=== PATIENT | male | born 1980 | race Caucasian/White ===

== ENCOUNTER 2016-07-24 05:56 | Inpatient (IN) | payer SELFPAY ==
[2016-07-23 04:00] VITALS: BP 127/73; PULSE 58; RESP 20; TEMP 98.1; O2SAT 100
[~2016-07-24] VITALS: Ht 182.9 cm; Wt 77.1 kg
[2016-07-24] VITALS (8 sets, daily range): BP systolic 131–159; BP diastolic 72–102; PULSE 67–93; RESP 18–20; TEMP 98–99; O2SAT 97–98
[2016-07-24] MEDS ORDERED: SODIUM CHLOR 0.9% 1000 ML INJ 1,000 ML IV SCH (06:05)
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
[2016-07-24] MEDS ORDERED: MORPHINE SULFATE 4 MG/ML INJ IV ONE (06:15)
[2016-07-24] MEDS ORDERED: TETANUS/DIPHTHERIA TOXOID ADULT 0.5 ML VIAL IM ONE (06:15)
[2016-07-24] MEDS ORDERED: ONDANSETRON HCL 4 MG/2 ML VIAL IVP ONE (06:15)
[2016-07-24] MEDS ORDERED: SODIUM CHLORIDE 0.9% FLUSH 10 ML FLUSH IVF PRN (06:15)
[2016-07-24] MEDS ORDERED: ceFAZolin 2 GM PREMIX 50 ML IV ONE (06:15)
[2016-07-24 06:27] LABS: AUTOMATED NEUTROPHIL # 5.1 TH/MM3 (1.8-7.7); BASOPHIL % 0.5 % (0.0-2.0); EOSINOPHIL # 0.1 TH/MM3 (0-0.4); EOSINOPHIL % 1.4 % (0.0-4.0); HEMATOCRIT 43.3 % (39.0-51.0); HEMO FLAGS DIFF FINAL; LYMPH % 21.3 % (9.0-44.0); LYMPHOCYTE # 1.6 TH/MM3 (1.0-4.8); MEAN CELL VOLUME 93.7 FL (80.0-100.0); MEAN CORPUSCULAR HEMOGLOBIN 32.3 PG (27.0-34.0); MEAN CORPUSCULAR HGB CONC 34.4 % (32.0-36.0); MONO % 6.6 % (0.0-8.0); NEUT % 70.2 % (16.0-70.0); PLATELET COUNT 144 TH/MM3 (150-450); RED BLOOD COUNT 4.62 MIL/MM3 (4.50-5.90); RED CELL DISTRIBUTION WIDTH 12.2 % (11.6-17.2); WHITE BLOOD COUNT 7.3 TH/MM3 (4.0-11.0)
[2016-07-24 06:31] LABS: POTASSIUM 3.7 MEQ/L (3.5-5.1)
[2016-07-24 06:34] LABS: BICARBONATE 27.7 MEQ/L (21.0-32.0)
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
[2016-07-24 06:41] LABS: APTT (PATIENT) 23.9 SEC (24.3-30.1); PROTHROMBIN TIME - PATIENT 11.2 SEC (9.8-11.6)
[2016-07-24] MEDS ORDERED: MORPHINE SULFATE 4 MG/ML INJ IV PUSH ONE ×2 (07:00→08:00)
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
[2016-07-24] MEDS ORDERED: IOHEXOL 350 MG/ML 10 ML VIAL (for RAD DIAG) IV ONE (07:48)
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
[2016-07-24] MEDS ORDERED: oxyCODONE/ACETAMINOPHEN 5 MG/325 MG TAB PO ONE (08:00)
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
[2016-07-24 09:33] LABS: BLOOD, URINE MOD (NEG); GLUCOSE,URINE NEG (NEG); KETONE, URINE NEG (NEG); NITRITE,URINE NEG (NEG); PH, URINE 6.5 (5.0-8.5)
[2016-07-24 09:48] LABS: METHOD OF COLLECTION CLEAN CATCH
[2016-07-24 09:49] LABS: URINE COLOR YELLOW (YELLW/STRAW)
[2016-07-24 09:50] LABS: COMMENT (UR) CULT NOT INDICATED; CULTURE IF INDICATED CULT NOT INDICATED; SQUAMOUS EPITHELIAL CELL URINE 0-5 /hpf (0-5)
[2016-07-24] MEDS ORDERED: Post-op Orders (for Pharmacy) MISC XX ONE (11:30)
[2016-07-24] MEDS ORDERED: NALOXONE HCL 0.4 MG/ML AMP IV PRN (11:30)
[2016-07-24] MEDS ORDERED: ONDANSETRON HCL 4 MG/2 ML VIAL IV PRN (11:30)
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
[2016-07-24] MEDS: PANTOPRAZOLE SOD 40 MG DELAYED RELEASE TAB PO SCH (12:30)
[2016-07-24] MEDS: MORPHINE SULFATE 4 MG/ML INJ IV PRN ×4 (12:31→23:43)
[2016-07-24] MEDS: SODIUM CHLORIDE 0.9% FLUSH 10 ML FLUSH IV FLUSH PRN ×2 (12:31→17:43)
[2016-07-24] MEDS: REMOVE OLD PATCH T-DERMAL SCH (13:00)
[2016-07-24] MEDS: ACETAMINOPHEN/HYDROcodone 325 MG/5 MG TAB PO PRN ×2 (13:28→18:49)
[2016-07-24] MEDS: LIDOCAINE HCL 5% PATCH T-DERMAL SCH (13:29)
[2016-07-24] MEDS: METHOCARBAMOL 500 MG TAB PO SCH ×2 (13:30→22:33)
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
[2016-07-24] MEDS: DOCUSATE SODIUM 100 MG CAP PO SCH (20:32)
[2016-07-24] MEDS: SODIUM CHLORIDE 0.9% FLUSH 10 ML FLUSH IV FLUSH SCH (20:44)
[2016-07-24] MEDS ORDERED: DOCUSATE SODIUM 100 MG CAP PO SCH (21:00)
[2016-07-24] MEDS ORDERED: MAGNESIUM HYDROXIDE SUSP 30 ML CUP PO SCH (21:00)
[2016-07-25] VITALS: BP 134/76; PULSE 66; RESP 20; TEMP 97.8; O2SAT 100
[2016-07-25 04:00] VITALS: BP 127/73; PULSE 58; RESP 20; TEMP 98.1; O2SAT 100
[2016-07-25] MEDS: METHOCARBAMOL 500 MG TAB PO SCH ×2 (06:08→13:31)
[2016-07-25] MEDS: MORPHINE SULFATE 4 MG/ML INJ IV PRN (06:14)
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
[2016-07-25 07:21] VITALS: BP 136/77; PULSE 66; RESP 17; TEMP 98.1; O2SAT 99
[2016-07-25 07:39] LABS: AUTOMATED NEUTROPHIL # 5.7 TH/MM3 (1.8-7.7); BASOPHIL % 0.3 % (0.0-2.0); EOSINOPHIL # 0.1 TH/MM3 (0-0.4); EOSINOPHIL % 0.9 % (0.0-4.0); HEMATOCRIT 40.6 % (39.0-51.0); HEMO FLAGS DIFF FINAL; LYMPH % 17.1 % (9.0-44.0); LYMPHOCYTE # 1.4 TH/MM3 (1.0-4.8); MEAN CELL VOLUME 93.8 FL (80.0-100.0); MEAN CORPUSCULAR HEMOGLOBIN 32.3 PG (27.0-34.0); MEAN CORPUSCULAR HGB CONC 34.4 % (32.0-36.0); NEUT % 69.7 % (16.0-70.0); PLATELET COUNT 110 TH/MM3 (150-450); RED BLOOD COUNT 4.33 MIL/MM3 (4.50-5.90); RED CELL DISTRIBUTION WIDTH 13.2 % (11.6-17.2); WHITE BLOOD COUNT 8.1 TH/MM3 (4.0-11.0)
[2016-07-25 08:02] LABS: BICARBONATE 32.4 MEQ/L (21.0-32.0); POTASSIUM 3.7 MEQ/L (3.5-5.1)
[2016-07-25] MEDS: LIDOCAINE HCL 5% PATCH T-DERMAL SCH (08:49)
[2016-07-25] MEDS: DOCUSATE SODIUM 100 MG CAP PO SCH (08:49)
[2016-07-25] MEDS: ACETAMINOPHEN/HYDROcodone 325 MG/5 MG TAB PO PRN ×2 (08:50→13:31)
[2016-07-25] MEDS: REMOVE OLD PATCH T-DERMAL SCH (08:50)
[2016-07-25] MEDS: SODIUM CHLORIDE 0.9% FLUSH 10 ML FLUSH IV FLUSH SCH (08:50)
[2016-07-25] MEDS ORDERED: PERC5TAB12 PO (10:19)
[2016-07-25] MEDS ORDERED: METH500T3 PO (10:20)
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
[2016-07-25] MEDS ORDERED: MILKSUS PO (11:14)
[2016-07-25] MEDS ORDERED: DOCU1CAP39 PO (11:14)
[2016-07-25 11:16] VITALS: BP 140/76; PULSE 67; RESP 17; TEMP 98.2; O2SAT 99
[2016-07-25] MEDS: PANTOPRAZOLE SOD 40 MG DELAYED RELEASE TAB PO SCH (13:32)
== END 2016-07-25 14:46 | disposition home or self-care (01) | DRG 185 ==
LOC: PHED 05:56 → PHEDA 08:00 → N06B 10:19
PROVIDERS: ADMIT Surgery; ATTEND Surgery
PROC: 0HQFXZZ Repair Right Hand Skin, External Approach (ICD-10-PCS; principal; 2016-07-24)
DX: S22.42XA Multiple fractures of ribs, left side, initial encounter for closed fracture (principal); F10.129 Alcohol abuse with intoxication, unspecified; S42.022A Displaced fracture of shaft of left clavicle, initial encounter for closed fracture; F17.210 Nicotine dependence, cigarettes, uncomplicated; S61.210A Laceration without foreign body of right index finger without damage to nail, initial encounter; V28.0XXA Motorcycle driver injured in noncollision transport accident in nontraffic accident, initial encounter; Y92.9 Unspecified place or not applicable; S20.312A Abrasion of left front wall of thorax, initial encounter; S60.512A Abrasion of left hand, initial encounter; S60.511A Abrasion of right hand, initial encounter; S30.811A Abrasion of abdominal wall, initial encounter; Y90.6 Blood alcohol level of 120-199 mg/100 ml
CPT/HCPCS: 12001; 70450; 71010; 71260; 72125; 73000; 74177; 80048; 80307; 81001; 85025; 85610; 85730; 86850; 86900; 86901; 90471; 90714; 94150; 96365; 96375; 96376; 99281; J0690; J2270; J2405; J7030; Q9967